=== PATIENT | female | born 1975 | race Caucasian/White ===

== ENCOUNTER 2017-07-18 12:17 | Emergency (ER) | payer MEDICAID ==
[~2017-07-18] VITALS: Ht 154.9 cm; Wt 72.4 kg
[2017-07-18 12:22] VITALS: BP 119/79
== END 2017-07-18 13:56 | disposition home or self-care (01) ==
LOC: ED 13:40
DX: O26.851 Spotting complicating pregnancy, first trimester (principal); M54.5 Low back pain; R10.9 Unspecified abdominal pain; Z3A.01 Less than 8 weeks gestation of pregnancy; E03.9 Hypothyroidism, unspecified
CPT/HCPCS: 36415; 76801; 84702; 86901; 99285